=== PATIENT | female | born 1930 | race Two or more races ===

== ENCOUNTER → 2021-06-17 | Outpatient (CLI) | payer MEDICARE ==
--- NOTE | 2021-06-17 13:22 | KCIC ---
EXAM: Head CT without contrast. HISTORY: Dementia. TECHNIQUE: Computed tomographic images of the head were obtained without contrast. *One or more of the following individualized dose reduction techniques were utilized for this examina tion: 1. Automated exposure control. 2. Adjustment of the mA and/or kV according to patient size. 3. Use of iterative reconstruction technique. COMPARISON: None. FINDINGS: There are left occipital craniotomy changes. There is suspected graft material containing f oci of gas within the craniotomy defect, favoring a relative recent surgery. There is no intracranial hemorrhage. There is no mass effect or midline shift. There is cerebral atrophy. There is decreased attenuation within the cerebral white matter, likely du e to chronic small vessel disease. There is near complete opacification of the sphenoid sinus with si nus wall thickening due to chronic sinusitis. The mastoid air cells are clear. The visualized orbits are unremarkable. IMPRESSION: 1. Left occipital craniotomy changes with associated graft material and gas within the craniotomy def ect. Correlate with surgical history. 2. Bilateral cerebral white matter changes, likely due to chronic small vessel disease. 3. Cerebral atrophy. Electronically signed by: Elba Moreau MD (06/17/2021 1:20 PM) [id number]
== END ==
LOC: KCIC CT 12:51
PROVIDERS: ATTEND Family Medicine
DX: G31.9 Degenerative disease of nervous system, unspecified (principal); J32.9 Chronic sinusitis, unspecified; F02.80 Dementia in other diseases classified elsewhere, unspecified severity, without behavioral disturbance, psychotic disturbance, mood disturbance, and anxiety
CPT/HCPCS: 70450